=== PATIENT | male | born 1995 | race Caucasian/White ===

== ENCOUNTER 2019-07-29 10:42 | Emergency (ER) | payer OTHER ==
[2019-07-29] MEDS ORDERED: Ketorolac *IM* INJ* 60 MG/2 ML VIAL IM ONE (11:54)
[2019-07-29] MEDS ORDERED: Cyclobenzaprine TAB* 10 MG PO ONE (11:54)
--- NOTE | 2019-07-29 11:55 | ED ---
Back Pain - HPI Summary HPI Summary: Pt. is a 23 y.o male who presents to the ER for low back pain x 1-2 weeks. Pt notes hx of intermittent back pain. Pt. 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 Pt. denies fever, abd.pain, bowel or bladder sxs, numbness, tingling or weakness. Pain located across low back and does not radiate. Denies fever or drug use. Pt. seen by PCP last week and rx mobic. States he is going to be set up with PT. Mother notes pt. suppose to have outpt. xrays. Sxs are mild in severity. No current modifying factors. Pt. went to work this morning and needed to leave secondary to pain. - History of Current Complaint Chief Complaint: EDBackInjuryPain Stated Complaint: BACK PAIN Time Seen by Provider: 07/29/19 11:40 Hx Obtained From: Patient Pain Intensity: 10 - Allergies/Home Medications Allergies/Adverse Reactions: Allergies Allergy/AdvReac Type Severity Reaction Status Date / Time MS Amoxicillin Allergy Severe Anaphylatic Verified 07/29/19 11:44 [From Augmentin] Shock MS Clavulanic Acid Allergy Severe Anaphylatic Verified 07/29/19 11:44 [From Augmentin] Shock MS Penicillins [PCN] Allergy Unknown Unknown Verified 07/29/19 11:44 Reaction Details PMH/Surg Hx/FS Hx/Imm Hx Previously Healthy: Yes Endocrine/Hematology History: Denies: Hx Anticoagulant Therapy, Other Endocrine/Hematological Disorders Cardiovascular History: Denies: Hx Hypertension, Other Cardiovascular Problems/Disorders Respiratory History: Reports: Hx Asthma Denies: Other Respiratory Problems/Disorders GI History: Denies: Other GI Disorders History: Denies: Other Problems/Disorders Musculoskeletal History: Denies: Other Musculoskeletal History Sensory History: Denies: Other Sensory Impairments Opthamlomology History: Denies: Other Sensory Impairments Neurological History: Denies: Other Neuro Impairments/Disorders Psychiatric History: Reports: Hx Anxiety, Hx Depression Denies: Hx of Violent Episodes Against Others, Other Psychiatric Issues/ Disorders Infectious Disease History: No Infectious Disease History: Denies: Hx Clostridium Difficile, Hx Hepatitis, Hx Human Immunodeficiency Virus (HIV), Hx of Known/Suspected MRSA, Hx Shingles, Hx Tuberculosis, History Other Infectious Disease, Traveled Outside the [place] in Last 30 Days - Family History Known Family History: Positive: Non-Contributory - Social History Occupation: Employed Full-time Lives: With Family Alcohol Use: None Substance Use Type: Reports: None Smoking Status (MU): Never Smoked Tobacco Review of Systems Constitutional: Negative Negative: Fever, Chills Cardiovascular: Negative Respiratory: Negative Gastrointestinal: Negative Genitourinary: Negative Positive: Other - low back pain Neurological: Negative Negative: Weakness, Paresthesia, Numbness All Other Systems Reviewed And Are Negative: Yes Physical Exam Triage Information Reviewed: Yes Vital Signs On Initial Exam: Initial Vitals Temp Pulse Resp BP Pulse Ox 97.8 F 81 18 131/80 98 07/29/19 10:44 07/29/19 10:44 07/29/19 10:44 07/29/19 10:44 07/29/19 10:44 Vital Signs Reviewed: Yes Appearance: Positive: Well-Appearing - Pt. lying in bed in NAD. Moves easily around bed. Mother present. Skin: Positive: Warm, Dry Head/Face: Positive: Normal Head/Face Inspection Eyes: Positive: Normal, EOMI Neck: Positive: Supple Musculoskeletal: Positive: Other - 5/5 strength in bilateral LEs. Negative straight leg test. No midline tenderness. Pain above left SI joint. Neurological: Positive: Normal, CN Intact II-III Psychiatric: Positive: Affect/Mood Appropriate Procedures - Sedation Patient Received Moderate/Deep Sedation with Procedure: No Diagnostics - Vital Signs Vital Signs Temp Pulse Resp BP Pulse Ox 07/29/19 10:44 97.8 F 81 18 131/80 98 - Laboratory Lab Statement: Any lab studies that have been ordered have been reviewed, and results considered in the medical decision making process. Back Pain Course/Dx - Course Assessment/Plan: Patient with ongoing atraumatic lumbar pain. X-ray shows mild degenerative changes and straightening of the loradic curve per radiology. Pt. given a dose of toradol and flexeril in ED. He is noted to be walking in hallway easily without difficulty. No signs of cauda equina. Will dc home with a few days of flexeril. TO continue mobic. Apply heat. Gentle stretching. Given warning signs to return. Pt understands and agrees with plan. - Diagnoses Differential Diagnosis/HQI/PQRI: Positive: Herniated Disc, Strain, Sprain Provider Diagnoses: Low back pain Discharge ED - Sign-Out/Discharge Documenting (check all that apply): Patient Departure - Discharge Plan Condition: Good Disposition: HOME Prescriptions: Cyclobenzaprine TAB* [Flexeril 10 MG TAB*] 10 mg PO TID PRN #9 tab PRN Reason: Pain - Moderate Patient Education Materials: Acute Low Back Pain (ED), Lower Back Exercises (ED ) Forms: *Work Release Referrals: Richie Gallo MD [Primary Care Provider] - Additional Instructions: Follow up with PCP and PT as scheduled Continue Mobic as directed Flexeril as directed Apply warm compresses to back Gentle stretching Avoid heavy lifting Return to ER for leg weakness, increased pain, loss of bowel or bladder function , or if concerned - Billing Disposition and Condition Condition: GOOD Disposition: Home
[2019-07-29 13:28] VITALS: BP 133/84
== END 2019-07-29 13:10 | disposition home or self-care (01) ==
LOC: ED 10:42
DX: M54.5 Low back pain (principal); M51.35 Other intervertebral disc degeneration, thoracolumbar region; J45.909 Unspecified asthma, uncomplicated; Z79.51 Long term (current) use of inhaled steroids; Z79.899 Other long term (current) drug therapy; Z88.1 Allergy status to other antibiotic agents; Z88.0 Allergy status to penicillin
CPT/HCPCS: 72110; 96372; 99282; A9270-GY; J1885